=== PATIENT | female | born 1955 | race Caucasian/White ===

== ENCOUNTER 2020-02-23 06:59 | Emergency (ER) | payer OTHER ==
[~2020-02-23] VITALS: Ht 157.5 cm; Wt 97.5 kg
[~2020-02-23 06:59] MED LIST: HYDR-2852; HYDR-39 PO; LACT1CAP4 PO; MULT-2410 PO; PANT40EC PO; VIC PO
[2020-02-23 07:03] VITALS: BP 163/93
--- NOTE | 2020-02-23 07:06 | NUR ---
To ED bed 04
[2020-02-23] MEDS ORDERED: NACL 0.9% 1,000 ML IV ONE (07:10)
[2020-02-23] MEDS ORDERED: KETOROLAC 30 MG/ML VIAL IVP STA (07:13)
--- NOTE | 2020-02-23 07:15 | NUR ---
LLQ ABD PAIN X 2 DAYS.PT STATES " SHE HAS KIDNEY STONES ", HAD 1 EPISODE OF N/V THIS AM AFTER TAKING BICODIN, AOX 4 , AFIBRILE , AMBULATORY WITH STEADY GAIT , PINK PALPEBRAL CONJUNCTIVA , ANICTERIC SCLERA , SCE , ROUND SOFT ABDOMEN. pmhx: HTN, chronic pain, hyperparathyroidism nka
--- NOTE | 2020-02-23 07:16 | NUR ---
DR CLARK AT BEDSIDE EVALUATING PT.
[2020-02-23] MEDS ORDERED: ONDANSETRON 4 MG/2 ML VIAL IVP ONE (07:20)
[2020-02-23 07:30] LABS: BASOPHILS # (AUTO) 0.1 K/uL (0.00-0.22); BASOPHILS % (AUTO) 0.6 % (0.0-2.0); EOSINOPHILS # (AUTO) 0.2 K/uL (0-0.4); EOSINOPHILS % (AUTO) 1.7 % (0.0-4.0); HEMATOCRIT 49.3 % (36-48); HEMOGLOBIN 16.5 g/dL (12.0-16.0); LYMPHOCYTES # (AUTO) 1.9 K/uL (2.5-16.5); LYMPHOCYTES % (AUTO) 17.6 % (20.5-51.1); MEAN CORPUSCULAR HEMOGLOBIN 30 pg (27-31); MEAN CORPUSCULAR HGB CONC 34 g/dL (33-37); MEAN CORPUSCULAR VOLUME 90.7 fL (80-94); MONOCYTES # (AUTO) 0.6 K/uL (0.8-1.0); MONOCYTES % (AUTO) 5.8 % (1.7-9.3); NEUTROPHILS # (AUTO) 7.9 K/uL (1.8-7.7); NEUTROPHILS % (AUTO) 74.3 % (42.2-75.2); PLATELET COUNT (AUTO) 260 K/uL (140-450); RED BLOOD CELL COUNT(AUTO) 5.43 MIL/uL (4.20-5.40); RED CELL DISTRIBUTION WIDTH 13.5 % (11.6-13.7); WHITE BLOOD COUNT (AUTO) 10.6 K/uL (4.8-10.8)
--- NOTE | 2020-02-23 07:30 | NUR ---
TO CT SCAN VIA WHEEL CHAIR.
--- NOTE | 2020-02-23 07:36 | NUR ---
PT BACK FROM CT SCAN
[2020-02-23 07:49] LABS: APPEARANCE,URINE SL CLOUDY (CLEAR); BILIRUBIN,URINE NEGATIVE (NEGATIVE); BLOOD, URINE 3+ (NEGATIVE); COLOR,URINE YELLOW (YELLOW); LEUKOCYTE ESTERASE ,URINE 1+ (NEGATIVE); NITRITE, URINE NEGATIVE (NEGATIVE); PH,URINE 5.5 (5.0-9.0); UGLUCOSE NEGATIVE (NEGATIVE)
--- NOTE | 2020-02-23 07:50 | NUR ---
RECEIVED REPORT FROM CATALINO MOE PT PREG TEST NEGATIVE.
[2020-02-23 07:58] LABS: RBC,URINE 11-20 (MOD) /HPF (0-5)
[2020-02-23 08:02] LABS: ALBUMIN 3.6 g/dL (3.4-5.0); ANION GAP 14.7 (8-16); CARBON DIOXIDE 23.3 mmol/L (21-32); CREATININE 0.9 mg/dL (0.6-1.3); TOTAL BILIRUBIN 0.6 mg/dL (0.0-1.0)
--- NOTE | 2020-02-23 08:20 | NUR ---
DR CLARK AT BEDSIDE REEVALUATING PT .
[2020-02-23 08:54] VITALS: BP 160/90
--- NOTE | 2020-02-23 08:55 | NUR ---
Patient discharged with v/s stable. Written and verbal after care instructions given and explained regarding kidney stones and pyelonephritis. Patient alert, oriented and verbalized understanding of instructions. Ambulatory with steady gait. All questions addressed prior to discharge. ID band removed. Patient advised to follow up with PMD. Rx of ibuprofen given. Patient educated on indication of medication including possible reaction and side effects. Opportunity to ask questions provided and answered.Gave a copy of US results .
== END 2020-02-23 08:55 | disposition home or self-care (01) ==
LOC: MED 06:59
DX: N39.0 Urinary tract infection, site not specified (principal); N20.0 Calculus of kidney; I10 Essential (primary) hypertension; Z79.899 Other long term (current) drug therapy
CPT/HCPCS: 36415; 74176; 80053; 81001; 81025; 82150; 83690; 85025; 87086; 96361; 96374; 96375; 99284; J1885; J2405; J7030

== ENCOUNTER 2020-04-25 15:48 | Inpatient (IN) | payer OTHER, SELFPAY ==
[~2020-04-25] VITALS: Ht 157.5 cm; Wt 99.3 kg
[2020-04-25] MEDS: LACTATED RINGERS 1,000 ML IV SCH (00:11)
[2020-04-25] MEDS: TAMSULOSIN 0.4 MG CAP PO SCH (00:12)
[2020-04-25 16:07] VITALS: BP 144/89
--- NOTE | 2020-04-25 16:10 | NUR ---
PT SENT TO LOBBY TO WAIT FOR AVAILABLE BED AND MSE.
[2020-04-25] MEDS ORDERED: NACL 0.9% 1,000 ML IV ONE (16:25)
[2020-04-25] MEDS ORDERED: KETOROLAC 30 MG/ML VIAL IVP ONE (16:25)
[2020-04-25] MEDS ORDERED: ONDANSETRON 4 MG/2 ML VIAL IVP ONE (16:30)
--- NOTE | 2020-04-25 16:43 | NUR ---
PATIENT WHEELCHAIR ASSISTED TO ER BED 12.
--- NOTE | 2020-04-25 17:00 | NUR ---
64 Y/O F BIB SELF WITH C/C LEFT FLANK PAIN. PT REPORTS LEFT FLANK PAIN THAT WORSEN ON 04/25 AT 11AM. PT STATES SHE WAS DIAGNOSED WITH KIDNEY STONES IN THE PAST. PT STATES PAIN IS 10/10, DULL PAIN TO THE LEFT FLANK AREA. PT REPORTS BURNING, PAINFUL SENSATION UPON URINATION AND URINATING FREQUENCY. VITAL SIGNS STABLE. PT PLACED IN POSITION OF COMFORT. BED LOCKED TO LOWEST POSITION, SIDE RAILS X 2 AND CALL LIGHT WITHIN REACH. PMH: HTN NKA MEDS: LISINOPRIL, 30MG Q DAY
--- NOTE | 2020-04-25 17:00 | NUR ---
Note undone in EDM - 04/25/20 at 1805 by MEDLISA 64 Y/O F BIB SELF WITH C/C LEFT FLANK PAIN. PT REPORTS LEFT FLANK PAIN THAT WORSEN ON 04/25 AT 11AM. PT STATES SHE WAS DIAGNOSED WITH KIDNEY STONES IN THE PAST. PT STATES PAIN IS 10/10, DULL PAIN TO THE LEFT FLANK AREA. VITAL SIGNS STABLE. PT PLACED IN POSITION OF COMFORT. BED LOCKED TO LOWEST POSITION, SIDE RAILS X 2 AND CALL LIGHT WITHIN REACH. PMH: HTN NKA MEDS: LISINOPRIL, 30MG Q DAY
[2020-04-25] MEDS ORDERED: KETOROLAC 30 MG/ML VIAL ONE (17:27)
[2020-04-25 17:40] LABS: BASOPHILS # (AUTO) 0.1 K/uL (0.00-0.22); BASOPHILS % (AUTO) 0.9 % (0.0-2.0); EOSINOPHILS # (AUTO) 0.2 K/uL (0-0.4); EOSINOPHILS % (AUTO) 2.1 % (0.0-4.0); HEMATOCRIT 46.7 % (36-48); HEMOGLOBIN 15.5 g/dL (12.0-16.0); LYMPHOCYTES # (AUTO) 2.7 K/uL (2.5-16.5); LYMPHOCYTES % (AUTO) 23.3 % (20.5-51.1); MEAN CORPUSCULAR HEMOGLOBIN 30 pg (27-31); MEAN CORPUSCULAR HGB CONC 33 g/dL (33-37); MEAN CORPUSCULAR VOLUME 90.2 fL (80-94); MONOCYTES # (AUTO) 0.9 K/uL (0.8-1.0); MONOCYTES % (AUTO) 7.8 % (1.7-9.3); NEUTROPHILS # (AUTO) 7.7 K/uL (1.8-7.7); NEUTROPHILS % (AUTO) 65.9 % (42.2-75.2); PLATELET COUNT (AUTO) 266 K/uL (140-450); RED BLOOD CELL COUNT(AUTO) 5.17 MIL/uL (4.20-5.40); RED CELL DISTRIBUTION WIDTH 13.6 % (11.6-13.7); WHITE BLOOD COUNT (AUTO) 11.7 K/uL (4.8-10.8)
[2020-04-25 17:46] LABS: APPEARANCE,URINE CLEAR (CLEAR); BILIRUBIN,URINE 2+ (NEGATIVE); BLOOD, URINE 3+ (NEGATIVE); LEUKOCYTE ESTERASE ,URINE 2+ (NEGATIVE); NITRITE, URINE POSITIVE (NEGATIVE); UGLUCOSE 1+ (NEGATIVE)
[2020-04-25 17:55] LABS: ALBUMIN 3.8 g/dL (3.4-5.0); ANION GAP 13.2 (8-16); CARBON DIOXIDE 27.7 mmol/L (21-32); CREATININE 0.9 mg/dL (0.6-1.3); POTASSIUM 3.9 mmol/L (3.5-5.1); TOTAL BILIRUBIN 0.4 mg/dL (0.0-1.0)
--- NOTE | 2020-04-25 18:00 | NUR ---
PT STATES 0/10 PAIN POST IVP ZOFRAN
[2020-04-25] MEDS ORDERED: cefTRIAXone 1,000 MG VIAL ONE (18:18)
--- NOTE | 2020-04-25 18:35 | NUR ---
CALLED LAB TO OBTAIN BLOOD CULTURES
--- NOTE | 2020-04-25 18:59 | NUR ---
EKG AT BEDSIDE
--- NOTE | 2020-04-25 19:13 | NUR ---
WILMAR SWAB COLLECTED AND TAKEN TO LAB
--- NOTE | 2020-04-25 19:20 | NUR ---
REPORT GIVEN TO LITA GREER. TRANSFER OF CARE AT THIS TIME.
[2020-04-25 19:55] LABS: COLOR,URINE ORANGE (YELLOW)
--- NOTE | 2020-04-25 19:56 | NUR ---
REPORT RECIVED FROM YADIRA LONDON, CONTINUATION OF CARE GIVEN. PATIENT VSS. PATIENT ASSISTED TO RESTROOM WITH STEADY GAIT. PATIENT A&O X4. RESPIRATIONS ARE EVEN AND UNLABORED. SKIN IS WARM AND DRY TO TOUCH. PATIENT DENIES PAIN AT THIS TIME.
[2020-04-25 19:59] LABS: CALCIUM OXALATE CRYSTALS,UR 0-10 /HPF (None Seen); RBC,URINE 20-50 /HPF (0-5)
[2020-04-25] MEDS ORDERED: HYDROcodone/APAP 5/325 MG 1 TAB TAB PO PRN (20:50)
[2020-04-25] MEDS ORDERED: ACETAMINOPHEN 325 MG TAB PO PRN (20:50)
[2020-04-25] MEDS ORDERED: ONDANSETRON 4 MG/2 ML VIAL IVP PRN (20:50)
[2020-04-25] MEDS ORDERED: KCL 20 MEQ/WATER INJ PREMIX 200 ML IV PRN (20:50)
[2020-04-25] MEDS ORDERED: POTASSIUM CHLORIDE 10 MEQ TABER PO PRN (20:50)
[2020-04-25] MEDS ORDERED: MAGNESIUM OXIDE 400 MG TAB PO PRN (20:50)
--- NOTE | 2020-04-25 23:16 | NUR ---
PATIENT GIVEN FOOD. PATIENT DENIES ANY PAIN AT THIS TIME. PATIENT REMAINS ON TEACHING FELLOW. VSS.
--- NOTE | 2020-04-26 03:00 | NUR ---
PATIENT AMBUALTED SELF TO RESTROOM WITH STEADY GAIT. PATIENT DENIES PAINFUL BURNING OR URINATION AT THIS TIME. DENIES FLANK PAIN. PATIENT RETURNED TO BED AND PLACED ON BRIDGE REPAIRER. PT VSS. BED LOCKED AND IN LOWEST POSITION.
--- NOTE | 2020-04-26 05:00 | NUR ---
Patient appears to be resting comfortably in bed. Vital Signs within normal limits. Respirations even and unlabored.
[2020-04-26] MEDS: LACTATED RINGERS 1,000 ML IV SCH ×2 (06:06→15:12)
--- NOTE | 2020-04-26 07:06 | NUR ---
PATIENT AMBUALTED TO RESTROOM WITH STEADY GAIT. PATIENT REMAINS ON PHYSICIST SOLID EARTH. VSS.
--- NOTE | 2020-04-26 07:20 | NUR ---
REPORT RECEIVED FROM LITA GREER. TX OF CARE AT THIS TIME.
--- NOTE | 2020-04-26 08:31 | NUR ---
Dr. Castle is evaluating the patient at bedside.
[2020-04-26 08:33] LABS: BASOPHILS # (AUTO) 0.1 K/uL (0.00-0.22); BASOPHILS % (AUTO) 0.7 % (0.0-2.0); EOSINOPHILS # (AUTO) 0.2 K/uL (0-0.4); EOSINOPHILS % (AUTO) 3.2 % (0.0-4.0); HEMATOCRIT 44.7 % (36-48); HEMOGLOBIN 14.9 g/dL (12.0-16.0); LYMPHOCYTES # (AUTO) 1.6 K/uL (2.5-16.5); LYMPHOCYTES % (AUTO) 22.6 % (20.5-51.1); MEAN CORPUSCULAR HEMOGLOBIN 30 pg (27-31); MEAN CORPUSCULAR HGB CONC 33 g/dL (33-37); MONOCYTES # (AUTO) 0.5 K/uL (0.8-1.0); MONOCYTES % (AUTO) 7.2 % (1.7-9.3); NEUTROPHILS # (AUTO) 4.7 K/uL (1.8-7.7); NEUTROPHILS % (AUTO) 66.3 % (42.2-75.2); PLATELET COUNT (AUTO) 215 K/uL (140-450); RED BLOOD CELL COUNT(AUTO) 4.96 MIL/uL (4.20-5.40); RED CELL DISTRIBUTION WIDTH 13.6 % (11.6-13.7); WHITE BLOOD COUNT (AUTO) 7.1 K/uL (4.8-10.8)
--- NOTE | 2020-04-26 08:36 | NUR ---
PATIENT HAS BEEN SCREENED AND CATEGORIZED MODERATE NUTRITION RISK. PATIENT WILL BE SEEN WITHIN 3-5 DAYS OF ADMISSION. 04/28/20 04/30/[address]
--- NOTE | 2020-04-26 08:45 | NUR ---
PT WAS GIVEN BREAKFAST PER DR. PATRICK'S VERBAL ORDER.
[2020-04-26] MEDS ORDERED: DOCUSATE SODIUM 100 MG GELCAP PO SCH (09:00)
[2020-04-26] MEDS ORDERED: hydroCHLOROthiazide 25 MG TAB PO SCH (09:00)
[2020-04-26] MEDS ORDERED: NON-FORMULARY ITEM (Lisinopril/Hydrochlorothiazide (Lisinopril-Hctz 20-25 mg Tab) 1 TAB) PO SCH (09:00)
[2020-04-26] MEDS: PANTOPRAZOLE 40 MG TABEC PO SCH ×2 (09:00→09:14)
[2020-04-26] MEDS ORDERED: lisinopriL 20 MG TAB PO SCH (09:00)
[2020-04-26] MEDS: TAMSULOSIN 0.4 MG CAP PO SCH (09:14)
[2020-04-26 09:16] LABS: CHOL/HDL RATIO 3.2 (1-4.5); MAGNESIUM 2.1 mg/dL (1.8-2.4)
[2020-04-26 09:32] LABS: ALBUMIN 3.3 g/dL (3.4-5.0); ANION GAP 12.2 (8-16); CARBON DIOXIDE 28.9 mmol/L (21-32); CREATININE 0.8 mg/dL (0.6-1.3); POTASSIUM 4.1 mmol/L (3.5-5.1); TOTAL BILIRUBIN 0.5 mg/dL (0.0-1.0)
--- NOTE | 2020-04-26 13:51 | NUR ---
Note undone in EDM - 04/26/20 at 1400 by ALINE PT IS WILLING TO LEAVE AMA. SIGNED AMA FORMED IS IN THE CHART.
--- NOTE | 2020-04-26 13:51 | NUR ---
PT IS WILLING TO LEAVE AMA. SIGNED AMA FORMED IS IN THE CHART.
[2020-04-26] MEDS ORDERED: TAMS0.4C96 PO (14:36)
[2020-04-26] MEDS ORDERED: CEPH500T PO (14:36)
--- NOTE | 2020-04-26 14:44 | NUR ---
Dr. Wu is evaluating the patient.
--- NOTE | 2020-04-26 14:46 | NUR ---
DR. MANDUJANO IS TALKING WITH PT.
[2020-04-26 14:49] VITALS: BP 161/92
[2020-04-26 15:05] VITALS: BP 155/85
--- NOTE | 2020-04-26 15:05 | NUR ---
PT HAS BEEN DISCHARGED FROM ER DIRECTLY. DISCHARGED PACKAGE WAS GIVEN TO PT.
== END 2020-04-26 15:05 | disposition home or self-care (01) | DRG 694 ==
LOC: MED 15:48 → MMU 20:47
PROVIDERS: ADMIT Hospitalist; ATTEND Hospitalist
DX: N13.2 Hydronephrosis with renal and ureteral calculous obstruction (principal); I10 Essential (primary) hypertension; K21.9 Gastro-esophageal reflux disease without esophagitis; E89.0 Postprocedural hypothyroidism; Z20.828 Contact with and (suspected) exposure to other viral communicable diseases
CPT/HCPCS: 36415; 80053; 81001; 83036; 83690; 83735; 83880; 85025; 87040; 87086; 93005; 96365; 96375; 99285; J0696; J1885; J2405; J7060; U0003

== ENCOUNTER 2023-02-17 06:57 | Emergency (ER) | payer OTHER ==
[~2023-02-17] VITALS: Ht 157.5 cm; Wt 97.5 kg
[~2023-02-17 06:57] MED LIST changes: +CEPH500T PO; +HYDR-2853 PO; -HYDR-39 PO; +TAMS0.4C96 PO
[2023-02-17 07:15] VITALS: BP 153/105; PULSE 75; RESP 16; TEMP 96.5; O2SAT 100
[2023-02-17 07:55] VITALS: O2SAT 100
[2023-02-17 08:08] LABS: BASOPHILS # (AUTO) 0.1 K/uL (0.00-0.22); BASOPHILS % (AUTO) 0.9 % (0.0-2.0); EOSINOPHILS # (AUTO) 0.3 K/uL (0-0.4); EOSINOPHILS % (AUTO) 4.6 % (0.0-4.0); HEMATOCRIT 45.2 % (36-48); HEMOGLOBIN 15.3 g/dL (12.0-16.0); LYMPHOCYTES # (AUTO) 0.9 K/uL (2.5-16.5); LYMPHOCYTES % (AUTO) 14.5 % (20.5-51.1); MEAN CORPUSCULAR HEMOGLOBIN 30 pg (27-31); MEAN CORPUSCULAR HGB CONC 34 g/dL (33-37); MEAN CORPUSCULAR VOLUME 88.3 fL (80-94); MONOCYTES # (AUTO) 0.5 K/uL (0.8-1.0); MONOCYTES % (AUTO) 7.3 % (1.7-9.3); NEUTROPHILS # (AUTO) 4.7 K/uL (1.8-7.7); NEUTROPHILS % (AUTO) 72.7 % (42.2-75.2); PLATELET COUNT (AUTO) 217 K/uL (140-450); RED BLOOD CELL COUNT(AUTO) 5.12 MIL/uL (4.20-5.40); RED CELL DISTRIBUTION WIDTH 13.9 % (11.6-13.7); WHITE BLOOD COUNT (AUTO) 6.5 K/uL (4.8-10.8)
[2023-02-17 08:17] LABS: ANION GAP 13.6 (8-16); CARBON DIOXIDE 25.4 mmol/L (21-32); CREATININE 0.6 mg/dL (0.6-1.3); TOTAL BILIRUBIN 0.4 mg/dL (0.0-1.0); TOTAL PROTEIN, SERUM 6.5 g/dL (6.4-8.2)
[2023-02-17 09:23] LABS: BILIRUBIN,URINE 1+ (NEGATIVE); BLOOD, URINE 1+ (NEGATIVE); COLOR,URINE YELLOW (YELLOW); LEUKOCYTE ESTERASE ,URINE NEGATIVE (NEGATIVE); NITRITE, URINE POSITIVE (NEGATIVE); PH,URINE 6.5 (5.0-9.0); PROTEIN,URINE TRACE (NEGATIVE); UGLUCOSE NEGATIVE (NEGATIVE)
[2023-02-17 09:25] LABS: APPEARANCE,URINE SLIGHTLY HAZY (CLEAR)
[2023-02-17 09:33] LABS: BACTERIA,URINE OCCASSIONAL /HPF (None Seen); RBC,URINE 11-20 (MOD) /HPF (0-5); SQUAMOUS EPITHELIAL CELL,UR 0-3 (FEW) /LPF (0-3 (FEW)); WBC,URINE 0-5 /HPF (0-5)
[2023-02-17 09:36] LABS: ICTOTEST NEGATIVE (NEGATIVE); MUCUS,URINE 1+ /LPF (None Seen)
[2023-02-17 09:52] VITALS: O2SAT 100
[2023-02-17 11:50] VITALS: O2SAT 100
[2023-02-17 13:45] VITALS: O2SAT 100
== END 2023-02-17 13:45 | disposition home or self-care (01) ==
LOC: MED 06:57
DX: N20.9 Urinary calculus, unspecified (principal); I12.9 Hypertensive chronic kidney disease with stage 1 through stage 4 chronic kidney disease, or unspecified chronic kidney disease; N18.9 Chronic kidney disease, unspecified; Z79.899 Other long term (current) drug therapy
CPT/HCPCS: 36415; 80053; 81001; 85025; 99285

== ENCOUNTER 2023-12-10 08:57 | Emergency (ER) | payer OTHER ==
[~2023-12-10] VITALS: Ht 157.5 cm; Wt 113.4 kg
[2023-12-10 09:12] VITALS: BP 164/72; PULSE 74; RESP 16; TEMP 98.1; O2SAT 99
[2023-12-10] MEDS: NACL 0.9% 1,000 ML IV ONE (09:57)
[2023-12-10 09:59] LABS: BASOPHILS # (AUTO) 0.1 K/uL (0.00-0.22); BASOPHILS % (AUTO) 0.5 % (0.0-2.0); EOSINOPHILS # (AUTO) 0.1 K/uL (0-0.4); EOSINOPHILS % (AUTO) 0.4 % (0.0-4.0); HEMATOCRIT 49.4 % (36-48); HEMOGLOBIN 15.8 g/dL (12.0-16.0); LYMPHOCYTES # (AUTO) 1.3 K/uL (2.5-16.5); LYMPHOCYTES % (AUTO) 9.7 % (20.5-51.1); MEAN CORPUSCULAR HEMOGLOBIN 29 pg (27-31); MEAN CORPUSCULAR HGB CONC 32 g/dL (33-37); MEAN CORPUSCULAR VOLUME 90.2 fL (80-94); MONOCYTES # (AUTO) 0.8 K/uL (0.8-1.0); MONOCYTES % (AUTO) 5.6 % (1.7-9.3); NEUTROPHILS # (AUTO) 11.5 K/uL (1.8-7.7); NEUTROPHILS % (AUTO) 83.8 % (42.2-75.2); PLATELET COUNT (AUTO) 295 K/uL (140-450); RED BLOOD CELL COUNT(AUTO) 5.48 MIL/uL (4.20-5.40); RED CELL DISTRIBUTION WIDTH 13.3 % (11.6-13.7); WHITE BLOOD COUNT (AUTO) 13.7 K/uL (4.8-10.8)
[2023-12-10] MEDS: KETOROLAC 30 MG/ML VIAL IVP ONE (09:59)
[2023-12-10] MEDS: ONDANSETRON 4 MG/2 ML VIAL IVP ONE (10:01)
[2023-12-10 10:05] LABS: BILIRUBIN,URINE 1+ (NEGATIVE); BLOOD, URINE 3+ (NEGATIVE); COLOR,URINE YELLOW (YELLOW); LEUKOCYTE ESTERASE ,URINE TRACE (NEGATIVE); NITRITE, URINE NEGATIVE (NEGATIVE); PROTEIN,URINE 2+ (NEGATIVE); UGLUCOSE NEGATIVE (NEGATIVE)
[2023-12-10 10:17] LABS: ANION GAP 19.1 (8-16); CALCIUM 9.1 mg/dL (8.5-10.1); CARBON DIOXIDE 23.7 mmol/L (21-32); CREATININE 0.9 mg/dL (0.6-1.3); POTASSIUM 3.8 mmol/L (3.5-5.1)
[2023-12-10 10:27] LABS: ALANINE AMINOTRANSFERASE 21 U/L (12-78); ALBUMIN 3.3 g/dL (3.4-5.0); ALKALINE PHOSPHATASE 79 U/L (50-136); ASPARTATE AMINOTRANSFERASE 9 U/L (15-37); BILIRUBIN,DIRECT 0.2 mg/dL (0.0-0.3); LIPASE 83 U/L (16-77); TOTAL BILIRUBIN 0.5 mg/dL (0.0-1.0); TOTAL PROTEIN, SERUM 7.4 g/dL (6.4-8.2)
[2023-12-10 10:30] LABS: ICTOTEST NEGATIVE (NEGATIVE)
[2023-12-10 10:32] LABS: WBC,URINE 0-5 /HPF (0-5)
[2023-12-10 10:34] LABS: BACTERIA,URINE FEW /HPF (None Seen); RBC,URINE >20 (MANY) /HPF (0-5); SQUAMOUS EPITHELIAL CELL,UR 4-10 (MOD) /LPF (0-3 (FEW))
[2023-12-10 10:36] LABS: APPEARANCE,URINE HAZY (CLEAR)
[2023-12-10 11:36] VITALS: BP 105/71; PULSE 86; RESP 18; TEMP 98.3
[2023-12-10 11:39] VITALS: O2SAT 95
[2023-12-10] MEDS ORDERED: CIPR500T9 PO (12:14)
[2023-12-10] MEDS ORDERED: METR-435 PO (12:14)
[2023-12-10] MEDS ORDERED: ONDA-188 SL (12:14)
== END 2023-12-10 12:32 | disposition home or self-care (01) ==
LOC: MED 08:57
DX: R10.84 Generalized abdominal pain (principal); R11.2 Nausea with vomiting, unspecified
CPT/HCPCS: 36415; 71045; 80048; 80076; 81001; 82948; 83690; 84484; 85025; 93005; 96361; 96374; 96375; 99285; J1885; J2405; J7030